=== PATIENT | male | born 1960 | race Caucasian/White ===

== ENCOUNTER 2018-10-11 07:00 | Day surgery (SDC) | payer BC ==
[~2018-10-11 07:00] MED LIST: Lactated Ringers 1,000 ML IV SCH
[2018-10-11] MEDS ORDERED: Propofol 200 MG/20 ML SDV IV ONE (07:01)
[2018-10-11] MEDS ORDERED: Simethicone Drops 40 MG/0.6 ML 30 ML Bottle ONE (08:04)
--- NOTE | 2018-10-11 08:30 | PCM.OPNOTE ---
- General Post-Op/Procedure Note Date of Surgery/Procedure: 10/11/18 Operative Procedure(s): C scope Findings: sigmoid diverticulosis Pre Op Diagnosis: screening Post-Op Diagnosis: sigmoid diverticulosis Anesthesia Technique: MAC Primary Surgeon: Maximus Chavez Anesthesia Provider: Elliott Soliman Pathology: none Complications: None Condition: Good Free Text/Narrative:: see dictation
[2018-10-11 09:50] VITALS: BP 132/88
--- NOTE | 2018-10-11 14:28 | OR ---
DATE OF OPERATION: 10/11/2018 SURGEON: Maximus Chavez MD PROCEDURE PERFORMED: Colonoscopy. PREOPERATIVE DIAGNOSIS: Need for colon cancer screening. POSTOPERATIVE DIAGNOSIS: Sigmoid diverticulosis. INDICATIONS FOR PROCEDURE: This is a 58-year-old white male who presents for screening C-scope. He was offered and accepted same. DESCRIPTION OF OPERATION: After an excellent IV sedation was administered, digital rectal exam was performed. No marked abnormality was noted. Flexible colonoscope was inserted and advanced to the cecum without difficulty. The prep was excellent. The following findings were noted. Ascending colon, unremarkable. Transverse colon, unremarkable. Descending colon, unremarkable. Sigmoid, scattered diverticula. Rectum and anus, unremarkable. Colon was deflated as the scope was removed. The patient tolerated the procedure well, was taken to recovery in good condition. Repeat colonoscopy in 10 years. /[id number] /MODL
== END 2018-10-11 09:42 | disposition home or self-care (01) ==
LOC: FB.SDS 07:00
PROVIDERS: ATTEND Surgery
DX: Z12.11 Encounter for screening for malignant neoplasm of colon (principal); K57.30 Diverticulosis of large intestine without perforation or abscess without bleeding; K21.9 Gastro-esophageal reflux disease without esophagitis; G47.30 Sleep apnea, unspecified; Z79.899 Other long term (current) drug therapy; Z98.890 Other specified postprocedural states; Z88.0 Allergy status to penicillin
CPT/HCPCS: 45378; A9270; J2704; J7120